=== PATIENT | female | born 1940 | race African-American/Black ===

== ENCOUNTER 2017-02-25 19:28 | Emergency (ER) | payer MEDICARE, BC ==
[~2017-02-25] VITALS: Ht 152.4 cm; Wt 90.9 kg
[2017-02-25] MEDS ORDERED: MEDDOSEPAK PO (21:13)
[2017-02-25] MEDS ORDERED: FLEXERIL PO (21:13)
[2017-02-25 21:50] VITALS: BP 191/85
== END 2017-02-25 21:53 | disposition home or self-care (01) ==
LOC: ED 19:28
DX: M54.2 Cervicalgia (principal); M47.812 Spondylosis without myelopathy or radiculopathy, cervical region

== ENCOUNTER 2020-03-15 19:42 | Emergency (ER) | payer MEDICARE, BC ==
[~2020-03-15] VITALS: Ht 162.6 cm; Wt 89.6 kg
[~2020-03-15 19:42] MED LIST: FLEXERIL PO; MEDDOSEPAK PO
[2020-03-15] MEDS ORDERED: CARVEDILOL3.125 MG PO (20:51)
[2020-03-15] MEDS ORDERED: NORVASC10 M1 PO (20:51)
[2020-03-15] MEDS ORDERED: CLONIDINE0.1 MG PO (20:52)
[2020-03-15] MEDS ORDERED: INDAPAMIDE2.5 MG PO (20:52)
[2020-03-15] MEDS ORDERED: ALLOPURINOL100 MG PO (20:53)
[2020-03-15] MEDS ORDERED: LISINOPRIL20 MG PO (20:53)
[2020-03-15 21:02] LABS: HEMATOCRIT 29.7 % (37.0-47.0); HEMOGLOBIN 9.2 g/dl (12.0-16.0); IMMATURE GRANULOCYTES 0.3 % (0.0-5.0); MEAN CELL VOLUME 88.1 fL CALC (80.0-100.0); MEAN CORPUSCULAR HGB 27.3 pG CALC (26.0-32.0); NEUT# 7.89 thou/uL (2.00-7.15); RED BLOOD COUNT 3.37 mill/uL (4.20-5.60); RED CELL DISTRI WIDTH 14.9 % (11.5-15.5)
[2020-03-15 22:27] LABS: ALBUMIN 3.7 g/dL (3.2-5.0); BILIRUBIN, TOTAL 0.6 mg/dL (0.0-1.4); CREATININE 1.8 mg/dL (0.5-1.0); POTASSIUM 5.1 mmol/l (3.5-5.1); TOTAL PROTEIN 7.7 g/dL (6.3-8.2)
[2020-03-15 22:31] LABS: INTERNATIONAL NORMALIZED RATIO 1.1 RATIO (0.7-1.3); PROTHROMBIN TIME 10.5 SECONDS (9.0-12.5)
[2020-03-16 01:35] VITALS: BP 114/64
== END 2020-03-16 01:35 ==
LOC: ED 19:42
PROVIDERS: Emergency Medicine
DX: J18.9 Pneumonia, unspecified organism (principal); R79.89 Other specified abnormal findings of blood chemistry; R60.0 Localized edema; D64.9 Anemia, unspecified; I10 Essential (primary) hypertension; M19.90 Unspecified osteoarthritis, unspecified site; Z20.822 Contact with and (suspected) exposure to COVID-19